=== PATIENT | female | born 2005 | race Caucasian/White ===

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

== ENCOUNTER 2025-05-27 17:27 | Emergency (ER) | payer MEDICAID, SELFPAY ==
[2025-05-27] VITALS (13 sets, daily range): BP systolic 95–138; BP diastolic 53–107; PULSE 70–82; RESP 16–18; TEMP 36.4; O2SAT 98–100; BMI 24.3
[2025-05-27 17:50] LABS: Microscopic, Urine URINE MICROSCOPIC (MICROSCOPIC)
[2025-05-27 17:51] LABS: Bilirubin,Urine Negative (Negative); Color,Urine YELLOW (Yellow); Glucose,Urine (UA) Negative (Negative); Ketones,Urine Negative (Negative); Leukocyte Esterase,Urine Negative (Negative); PH,Urine 7.0 (5.0-8.5); Protein,Urine Negative (Negative); Specific Gravity, Urine 1.010 (1.005-1.030); Urobilinogen,Urine 0.2 EU/dl (0.2)
--- NOTE | 2025-05-27 17:52 | ED_ITS ---
<Statement entered by Edmond Villafuerte MD - 05/28/25 03:49> I was consulted by the NELSON, and we discussed the complexity of the problems being addressed. I approve the treatment and management plan for this patient's care in the emergency department, thus performing a substantive portion of the medical decision making. Edmond Villafuerte MD Discharge Plan Disposition Patient Disposition: Home, Self-Care Condition: Good Prescriptions Prescriptions: No Action hydroxyzine HCl 10 mg tablet 10 mg PO Q8H PRN (Reason: anxiety) Qty: 30 0RF citalopram [Celexa] 20 mg tablet 20 mg PO DAILY Qty: 90 3RF pantoprazole [Protonix] 40 mg tablet,delayed release (DR/EC) 40 mg PO DAILY Qty: 90 3RF bupropion HCl [Wellbutrin XL] 150 mg tablet extended release 24 hr 150 mg PO DAILY Qty: 90 3RF doxycycline hyclate 100 mg capsule 100 mg PO BID 7 Days Qty: 14 0RF Referrals Follow up/Referrals: Provider,Referral, [Primary Care Provider, Medical] - See instructions Zabrina Llamas DO [Staff Physician, AUTHORIZATION NURSE] - See instructions Activity Restrictions/Add. Instructions Additional Instructions/Restrictions: Please return to the emergency department with any worsening signs or symptoms. Please take antinausea medicine as needed. I recommend ibuprofen and Tylenol as needed for symptomatic relief. Please call the AUTHORIZATION NURSE in the morning to arrange your follow-up appointment for repeat ultrasound. Clinical Impressions Clinical Impression: Complex cyst of right ovary Instructions Patient Instructions: Ovarian Cyst, DI for Ovarian Cyst Print Language Print Language: [place] Discharge ED Provider: Edmond Villafuerte General Adult HPI General Chief complaint: Abdominal Pain Stated complaint: abdominal pain,SOA Time Seen by Provider: 05/27/25 17:48 Mode of Arrival: Ambulatory Source of Information: Patient Description of Symptoms (Recalled from ER Triage Doc. by RN): Pt presents for evaluation of pelvic pain and lower abdominal pain x 3 days. Pt states she has nausea. Denies urinary sx, vomiting/diarrhea/constipation. Pt denies any abnormal bleeding or discharge History of Present Illness HPI narrative: 19-year-old female presents to the emergency department with lower quadrant abdominal pain/perennial pain for the last 3 days, worsened today, patient states that she was at work , when the pain was so severe it doubled me over , and she felt like she was going to pass out , patient admits to nausea no vomiting, admits to strict fever and chills over the last several days, denies any chest pain or shortness of breath, denies any constipation diarrhea, hematuria melena hematochezia hematemesis, denies any vaginal discharge vaginal bleeding or any other vaginal/urinary symptomatology, denies any new sexual contacts or risky sexual behaviors. Patient is a current everyday smoker, occasional alcohol use, occasional marijuana use, last use was last night, as well as occasional Xanax use . Other past medical history is consistent with Nexplanon insertion otherwise unremarkable. Initial triage vitals are unremarkable. Please note that above description of symptoms, in this electronic medical record under categorization of recalled from ER triage doctor by RN are reflective of an initial nursing assessment, however, is not reflective of my full history and physical exam that was personally taken and clarified. Consequentially, this preceding description of symptoms, which may include the patient's categorized chief complaint in the EMR, do not reflect my personal clinical impression, and the ultimate description of history of present illness and patient stated complaints should be deferred to this section of the note. Unless stated otherwise or congruent with this section of the note, additional signs, symptoms, or incongruence should be interpreted as inaccurate with my clinical impression. Onset (ago): day(s) Related Data Previous Rx's ?Medication ?Instructions ?Recorded hydroxyzine HCl 10 mg tablet 10 mg PO Q8H PRN anxiety #30 tabs 07/07/22 bupropion HCl 150 mg 24 hr tablet, 150 mg PO DAILY #90 tabs 08/17/22 extended release (Wellbutrin XL) citalopram 20 mg tablet (Celexa) 20 mg PO DAILY #90 ta bs 08/17/22 pantoprazole 40 mg tablet,delayed 40 mg PO DAILY #90 t abs 08/17/22 release (Protonix) doxycycline hyclate 100 mg capsule 100 mg PO BID 7 day s #14 caps 10/06/22 Allergies Allergy/AdvReac Type Severity Reaction Status Date / Time No Known Allergies Allergy Verified 08/17/22 10:10 [facility] Disclaimer: The information contained in this section may have been updated after the patient was seen, as this information can be updated by other users. Social History Smoking Status: Current every day smoker alcohol intake: never substance use type: denies use current occupational status: student Travel in the last 8 weeks?: None number of children: 0 Have you lived/traveled outside [place] in past 30 days?: No Contact w/someone who lives/traveled outside US past 30 days?: No Exposure to someone with infectious disease in past 14 days?: No Do you have a fever (greater than 100.4 F or 38 C)?: No Have you tested positive for COVID-19?: No Exposed to someone with COVID-19 in past 14 days?: No Do you have a sore throat?: No Do you have a cough?: No Do you have any weakness?: No Do you have any diarrhea?: No Are you experiencing any unusual bleeding?: No Do you have any muscle aches/pain?: No Do you have any abdominal pain?: No Are you experiencing loss of taste or smell?: No Other Medical History Have you received the Flu Vaccine for this season: Yes Have you received the Pneumonia Vaccine: No ROS Obtained: Yes All systems reviewed & no additional complaints except as documented Physical Exam General General appearance: alert and in no apparent distress Head Head exam: atraumatic and normocephalic Eye Eye exam: Present PERRL and EOMI ENT ENT exam: Present mucous membranes moist Neck Neck exam: Present normal inspection Chest Chest inspection: Present normal inspection and symmetric chest wall rise Respiratory Respiratory exam: Present normal lung sounds bilaterally; Absent respiratory distress Cardiovascular Cardiovascular exam: Present regular rate and normal rhythm Abdominal Exam Abdominal exam: Present soft, tenderness, guarding and tenderness at McBurney's Point; Absent rebound or rigidity Abdominal tenderness: Present RLQ, LLQ, suprapubic and mild Comment: Mild voluntary guarding noted. Extremities Exam Extremities exam: Present normal inspection Neurological Exam Neurological exam: Present alert and oriented X3 Psychiatric Psychiatric exam: Present normal affect Skin Skin exam: Present warm and dry Medical Decision Making Medical Records Medical records reviewed: Yes I reviewed the patient's medical records. Screening: Per USPSTF and CDC recommendations, given the prevalence of disease in our region, it is our hospital?s policy to screen for HIV and viral Hepatitis for all patients aged 18 and over and those with ongoing risk factors. Karsten Inquiry Pt receiving controlled substance: No Karsten was queried for this patient: No Vital Signs: 10/19/25 17:36 05/27/25 17:53 05/27/25 18:00 Temperature 97.6 F Temperature Source Oral Pulse Rate 77 73 Pulse Rate [Right] 79 Respiratory Rate 18 Blood Pressure 136/84 134/87 Blood Pressure [Right Arm] 130/85 Blood Pressure Mean [Right Arm] 100 02 Sat by Pulse Oximetry 99 100 100 05/27/25 19:17 Temperature Temperature Source Pulse Rate 71 Pulse Rate [Right] Respiratory Rate Blood Pressure 104/76 L Blood Pressure [Right Arm] Blood Pressure Mean [Right Arm] 02 Sat by Pulse Oximetry 99 Lab Data Lab results reviewed: Yes I reviewed the patient's lab results. Lab Results 05/27/25 17:44: Urine Color Yellow, Urine Appearance Clear, Urine pH 7.0, Ur Specific [place] 1.010, Urine Protein Negative, Urine Glucose (UA) Negative, Urine Ketones Negative, Urine Blood Negative, Urine Nitrate Negative, Urine Bilirubin Negative, Urine Urobilinogen 0.2, Ur Leukocyte Esterase Negative, Urine RBC None, Urine WBC None, Ur Squamous Epith Cells 10-20, Urine Bacteria Trace, Urine HCG, Qual Negative, Urine Opiates Screen Negative, Urine Methadone Screen Negative, Ur Barbituates Screen Negative, Ur Phencyclidine Scrn Negative, Ur Amphetamines Screen Negative, U Benzodiazepines Scrn Positive H, Urine Cocaine Screen Positive H, U Marijuana (THC) Screen Positive H 05/27/25 17:58: WBC 14.7 H, RBC 4.66, Hgb 14.4, Hct 42.3, MCV 90.8, MCH 30.9, MCHC 34.0, RDW 12.8, Plt Count 317, MPV 9.3, Neut % (Auto) 76.0, Lymph % (Auto) 16.1, [place] % (Auto) 5.7, Eos % (Auto) 1.3, Baso % (Auto) 0.3, Neut # (Auto) 11.1 H, Lymph # (Auto) 2.4, [place] # (Auto) 0.8, Eos # (Auto) 0.2, Baso # (Auto) 0.1, Sodium 137, Potassium 4.2, Chloride 101, Carbon Dioxide 24, Anion Gap 16.2 H, BUN 16, Creatinine 0.80, Estimated Creat Clear 114, Estimated GFR 91, Est GFR ( Amer) 111, Glucose 99, Lactate 0.9, Calcium 9.6, Total Bilirubin 0.4, AST 31, ALT 17, Alkaline Phosphatase 110, Total Protein 8.1, Albumin 5.0, Globulin 3.1, Albumin/Globulin Ratio 1.6, Lipase 137 05/27/25 17:58 05/27/25 17:58 Orders (Tests/Meds): ED MEDICATIONS Generic Name Dose Route Start Last Admin Trade Name Freq PRN Reason Stop Dose Admin Sodium Chloride 10 ml 05/27/25 19:24 05/27/25 19:25 Sodium Chloride 0.9% 10ml Syr (Rad Only) IV 06/26/25 19:23 10 ml NEEDED PRN Administration Maintain IV Site Discontinued Medications Generic Name Dose Route Start Last Admin Trade Name Freq PRN Reason Stop Dose Admin Iopamidol 75 ml 05/27/25 19:24 05/27/25 19:25 Iopamidol-370 (76%);100ml Bottle IV 05/27/25 19:25 75 ml ONCE ONE Administration Ketorolac Tromethamine 15 mg 05/27/25 18:01 05/27/25 19:06 Ketorolac 15mg/Ml Vial IV 05/27/25 18:02 15 mg ONCE ONE Administration Ondansetron HCl 4 mg 05/27/25 18:01 05/27/25 19:06 Ondansetron 4mg/2ml Vial IV 05/27/25 18:02 4 mg ONCE ONE Administration ORDERS Category Date Time Status CT abdomen pelvis w con Stat Cat Scan 05/27/25 17:58 Completed US transvaginal Stat Exams 05/27/25 17:58 Completed Complete Blood Count Auto Diff Stat Lab 05/27/25 17:58 Completed Comprehensive Metabolic Panel Stat Lab 05/27/25 17:58 Completed Drug Screen,Urine Stat Lab 05/27/25 17:44 Completed Lactic Acid Stat Lab 05/27/25 17:58 Completed Lipase Stat Lab 05/27/25 17:58 Completed Urinalysis and Microscopic Stat Lab 05/27/25 17:44 Completed Urine , HCG Qual. Stat Lab 05/27/25 17:44 Completed Medical Decision Narrative: 19-year-old female presents the emergency department with lower abdominal pain/pelvic pain that has been ongoing for the last 3 days, differential diagnosis include but not limited to, acute UTI, ovarian torsion, ovarian cyst rupture, ovarian cyst, leiomyoma, acute pyelonephritis, appendicitis, pancreatitis, diverticulitis, colitis, ileus, nephrolithiasis ureterolithiasis among others. I discussed this patient's case with the attending physician Dr. Villafuerte Will obtain basic laboratory studies, UDS urinalysis lipase level lactic acid level, urine hCG, transvaginal ultrasound CT and pelvis with contrast, will give 15 mg IV Toradol and 4 mg IV Zofran for pain and nausea. Urinalysis is grossly unremarkable, negative nitrites, negative leukocyte esterase. CBC notable for mild leukocytosis of 14.7 otherwise unremarkable CBC CMP is notable for no lactic acidosis, normal lipase otherwise unremarkable Microscopic analysis of the patient's urine yields no RBCs no WBCs 10-20 squamous epithelial cells and trace bacteria. hCG qualitative negative. Patient's UDS is positive for benzodiazepines positive for cocaine and positive for marijuana. I reviewed the patient's CT abdomen pelvis with contrast along the corresponding radiologic report, 3.3 cm right ovarian cyst, small quantity of free pelvic fluid, normal appendix, contracted gallbladder. I reviewed the patient's transvaginal ultrasound with corresponding radiologic report, normal ovarian arterial and venous vascular flow no evidence of ovarian torsion, there is a 3.4 x 2.5 x 3.1 cm hemorrhagic right ovarian cyst recommend 6 to 12-week follow-up to ensure resolution of cyst is unchanged, then hemorrhagic cyst is unlikely continue follow-up either ultrasound or MRI should be considered, if the study did not confirm an endometrioma or dermoid then surgical evaluation to be considered, unremarkable uterus and endometrium, 1.87 cm left ovarian dominant follicle small quantity of free pelvic fluid. I discussed these findings in the patient's case with Dr. Nelson the on-call AUTHORIZATION NURSE at 8:45 PM, she will arrange follow-up with the patient with repeat ultrasound, I discussed these results/recommendations with the patient and family member at the bedside, patient's nausea is improved still having some residual pain, will give 5 mg p.o. [place], and prescribe the patient 4 mg p.o. sublingual Zofran as needed for nausea and vomiting, patient will follow-up with AUTHORIZATION NURSE in the upcoming days/weeks. Repeat ultrasound. Patient was given strict ED return precautions. Patient and family voiced understanding and agreement with current treatment plan/discharge plan. Critical Care Critical Care Time Critical Care Time: No
--- NOTE | 2025-05-27 17:58 | US_ITS ---
PROCEDURE INFORMATION: Exam: US Duplex Artery and Vein of the Abdominal and/or Reproductive Organs. Complete Ovaries Exam date and time: 05/27/2025 6:19 PM Age: 19 years old Clinical indication: Hip pain; Bilateral; Additional info: Rule out torsion TECHNIQUE: Imaging protocol: Real-time duplex ultrasound scan of the arterial and venous flow with color Doppler flow and spectral waveform analysis with image documentation. Duplex exam was performed to evaluate for torsion and other vascular conditions. Total images: 331 COMPARISON: CT ABDOMEN PELVIS W CON 07/11/2022 2:17 AM FINDINGS: Right ovary/adnexa: Normal arterial and venous Doppler waveforms in the ovary. No ovarian torsion. Left ovary/adnexa: Normal arterial and venous Doppler waveforms in the ovary. No ovarian torsion. IMPRESSION: Normal ovarian arterial and venous vascular flow. No evidence ovarian torsion. PROCEDURE INFORMATION: Exam: US Pelvis, Transvaginal, Non-Obstetric Exam date and time: 05/27/2025 6:19 PM Age: 19 years old Clinical indication: Hip pain; Bilateral; Additional info: Rule out torsion TECHNIQUE: Imaging protocol: Real-time transvaginal pelvic (non-obstetric) ultrasound with image documentation. Transvaginal imaging was used for better evaluation of the endometrium, adnexa, and/or cervix. COMPARISON: US TRANSVAGINAL 05/27/2025 6:19 PM FINDINGS: Uterus: Anteverted uterus measuring 7.0 x 2.7 x 3.5 cm. Homogeneous echotexture. No myometrial mass. Nonthickened endometrium at 4.4 mm. Right ovary/adnexa: Enlarged right ovary measuring 4.8 x 4.0 x 4.2 cm with volume of 42.2 cc. 3.4 x 2.5 x 3.1 cm complex right ovarian cyst with thin internal septation and low level echogenic debris, most in keeping with hemorrhagic cyst. Left ovary/adnexa: Normal left ovary measuring 3.0 x 2.4 x 1.8 cm with volume of 7.0 cc. 1.8 cm left ovarian dominant follicle. Intraperitoneal space: Small quantity free pelvic fluid. No adnexal mass. IMPRESSION: 1. 3.4 x 2.5 x 3.1 cm hemorrhagic right ovarian cyst. Recommend 6-12 week follow-up to ensure resolution. If the cyst is unchanged, then hemorrhagic cyst is unlikely, and continued follow-up with either US or MR should then be considered. If these studies do not confirm an endometrioma or dermoid, then surgical evaluation should be considered. 2. Unremarkable uterus and endometrium 3. 1.8 cm left ovarian dominant follicle. 4. Small quantity free pelvic fluid.
--- NOTE | 2025-05-27 17:58 | CT_ITS ---
PROCEDURE INFORMATION: Exam: CT Abdomen And Pelvis With Contrast Exam date and time: 05/27/2025 7:24 PM Age: 19 years old Clinical indication: Abdominal pain; Additional info: Lower quadrant abdominal pain TECHNIQUE: Imaging protocol: Computed tomography of the abdomen and pelvis with contrast. Total images: 298 Radiation optimization: All CT scans at this facility use at least one of these dose optimization techniques: automated exposure control; mA and/or kV adjustment per patient size (includes targeted exams where dose is matched to clinical indication); or iterative reconstruction. Contrast material: ISOVUE; Contrast volume: 75 ml; Contrast route: IV; COMPARISON: CT ABDOMEN PELVIS W CON 07/11/2022 2:17 AM FINDINGS: Lungs: Lung bases are clear. Heart: Normal heart size. Liver: Normal. No mass. Gallbladder and biliary ducts: Contracted gallbladder with mild wall thickening. No calcified gallstones or bile duct dilatation. Pancreas: Normal. No ductal dilation. Spleen: Heterogeneous splenic enhancement compatible with phase of contrast. No splenomegaly. Adrenal glands: Normal. No mass. Kidneys and ureters: No hydronephrosis, nephrolithiasis, or renal mass. Stomach and bowel: Unremarkable stomach and duodenum. No ileus or bowel obstruction. Unremarkable small bowel. Unremarkable colon and rectum. Appendix: Normal appendix. Intraperitoneal space: No ascites. No free air. Vasculature: Nonaneurysmal abdominal aorta. Major abdominal vessels enhance appropriately. Lymph nodes: Unremarkable. No enlarged lymph nodes. Urinary bladder: Unremarkable as visualized. Reproductive: Physiologic uterus and left ovary. 3.3 cm right ovarian cyst. Small quantity free pelvic fluid. Trace fluid in the right adnexa and inferior right paracolic gutter. Bones/joints: Unremarkable. No acute fracture. Soft tissues: Tiny fat containing umbilical hernia. IMPRESSION: 1. 3.3 cm right ovarian cyst. 2. Small quantity free pelvic fluid. 3. Normal appendix. 4. Contracted gallbladder.
--- NOTE | 2025-05-27 17:59 | PC.NURSE ---
Radiology notified of need for ultrasound to rule out ovarian torsion.
[2025-05-27 18:12] LABS: Hematocrit 42.3 % (37.0-47.0); Hemoglobin 14.4 g/dL (12.2-16.2); Immature Granulocytes % 0.6 %; Mean Corpuscular HGB Conc 34.0 g/dL (31.8-35.4); Mean Corpuscular Hemoglobin 30.9 pg (27.0-31.2); Mean Corpuscular Volume 90.8 fl (81-99); Nucleated Red Blood Cells % 0 %; Platelet Count 317 K/mm3 (142-424); Red Blood Count 4.66 M/mm3 (4.20-5.40); Red Cell Distribution Width-SD 42.6 fL; White Blood Count 14.7 K/mm3 (4.5-13.0)
[2025-05-27 18:20] LABS: Bacteria,Urine Trace /lpf
[2025-05-27 18:24] LABS: Alanine Aminotransferase 17 U/L (12-78); Albumin Level 5.0 g/dl (3.5-5.0); Albumin/Globulin Ratio 1.6 (1.1-1.8); Alkaline Phosphatase 110 U/L (38-126); Anion Gap 16.2 mEq/L (5-15); Aspartate Amino Transferase 31 U/L (14-36); Bilirubin,Total 0.4 mg/dl (0.2-1.3); Blood Urea Nitrogen 16 mg/dl (7-17); Calcium 9.6 mg/dl (8.4-10.2); Carbon Dioxide 24 mmol/L (22.0-30.0); Chloride 101 mmol/L (98-107); Creatinine Clearance Estimated 114 mL/min (50-200); Creatinine,Serum 0.80 mg/dl (0.52-1.04); Estimated Glomerular Filt Rate 91 ml/min (>60); GFR (African American) 111 ML/MIN (>60); Globulin 3.1 g/dL (1.3-3.2); Glucose 99 mg/dl (74-100); Lipase 137 U/L (23-300); Potassium 4.2 mmoL/L (3.5-5.1); Sodium 137 mmol/L (136-145); Total Protein,Serum 8.1 g/dl (6.3-8.2)
[2025-05-27 18:48] LABS: Urine Pregnancy, HCG Qual. Negative (Negative)
[2025-05-27 19:00] LABS: Amphetamine/Metha Screen,Urine Negative ng/ml (<1000); Barbiturates Screen,Urine Negative ng/ml (<200)
[2025-05-27 19:01] LABS: Benzodiazepines Screen,Urine Positive ng/ml (<200)
[2025-05-27 19:03] LABS: Methadone Screen,Urine Negative ng/ml (<300)
[2025-05-27 19:04] LABS: Phencyclidine Screen,Urine Negative ng/ml (<25)
[2025-05-27 19:05] LABS: Opiate Screen,Urine Negative ng/ml (<300)
[2025-05-27] MEDS: ONDANSETRON 4MG/2ML VIAL 4 MG IV (19:06)
[2025-05-27] MEDS: KETOROLAC 15MG/ML VIAL 15 MG IV (19:06)
[2025-05-27] MEDS: IOPAMIDOL-370 (76%);100ML BOTTLE 75 ML IV (19:25)
[2025-05-27] MEDS: SODIUM CHLORIDE 0.9% 10ML SYR (RAD ONLY) 10 ML IV (19:25)
[2025-05-27] MEDS: HYDROCODONE/APAP 5/325 MG TABLET 1 TAB PO (20:58)
== END 2025-05-27 21:02 | disposition home or self-care (01) ==
PROVIDERS: Physician Assistant; Emergency Provider Student in an Organized Health Care Education/Training Program
DX: N83.291 Other ovarian cyst, right side (principal); R10.20 Pelvic and perineal pain unspecified side; N83.292 Other ovarian cyst, left side; R11.0 Nausea; F13.90 Sedative, hypnotic, or anxiolytic use, unspecified, uncomplicated; F12.90 Cannabis use, unspecified, uncomplicated; F17.210 Nicotine dependence, cigarettes, uncomplicated
CPT/HCPCS: 74177; 76830; 80053; 80307; 81001; 81025; 83605; 83690; 85025; 96374; 96375; 99285; J1885; J2405; Q9967